=== PATIENT | female | born 1940 | race Caucasian/White ===

== ENCOUNTER 2017-03-06 03:17 | Emergency (ER) | payer SELFPAY ==
--- NOTE | 2017-03-06 03:51 | PDOC ---
Attending Attestation - Resident Resident Name: Abdi Hernandes - ED Attending Attestation I have performed the following: I have examined & evaluated the patient, The case was reviewed & discussed with the resident, I agree w/resident's findings & plan, Exceptions are as noted - HPI HPI: 03/06/17 04:55 The patient is a 77 year old female with significant past medical history of hypertension who presents to the ED for elevated blood pressure. Patient reports she went on vacation and has ran out of her medications. States is unable to visit her physician for another few weeks and now has been only taking half the dose of her blood pressure medications. She presents today for elevated blood pressure. Denies lightheadedness, diaphoresis, chest pain, SOB, jaw pain, shoulder pain, arm pain, nausea, or vomiting. The patient denies fever, chills, cough, abdominal pain, and diarrhea. - Physicial Exam PE: 03/06/17 04:56 GENERAL: Well-appearing, well-nourished. No apparent distress. HEENT: Normocephalic, atraumatic. PERRL, EOM intact. CARDIOVASCULAR: Normal S1, S2. Regular rate and rhythm. PULMONARY: Clear to auscultation bilaterally. ABDOMEN: Soft, non-distended, non-tender. EXTREMITIES: Normal ROM in all four extremities. No gross deformities. SKIN: Warm, dry. No rash NEUROLOGICAL: No focal neurological deficits. Medical Decision Making - Medical Decision Making 03/06/17 04:56 Documentation prepared by Jen Aviles, acting as manager medical writing for Alexandru Douglas MD/.
[2017-03-06 04:04] VITALS: BP 171/99; PULSE 68; TEMP 98; BMI 28.5
[2017-03-06 04:17] LABS: EOSINOPHIL 0.9 % (0-4.5); MCH 29.1 pg (25.7-33.7); MCHC 32.3 g/dl (32.0-36.0); MEAN CELL VOLUME 89.9 fl (80-96); MEAN PLT VOLUME 7.7 fl (7.5-11.1); NEUTROPHILS 72.5 % (42.8-82.8); PLATELET COUNT 239 K/MM3 (134-434); RDW 12.8 % (11.6-15.6); WHITE BLOOD COUNT 10.4 K/mm3 (4.0-10.0)
[2017-03-06] MEDS ORDERED: SODIUM CHLORIDE 500 ML IV STA (04:31)
[2017-03-06 04:42] LABS: ALBUMIN 3.9 g/dl (3.4-5.0); ALK PHOS 80 U/L (45-117); ANION GAP 8 (8-16); BILIRUBIN,TOTAL 0.3 mg/dL (0.2-1.0); CALCIUM 9.5 mg/dL (8.5-10.1); CO2 32 mmol/L (21-32); CREATININE 0.8 mg/dL (0.55-1.02); GLUCOSE,RANDOM 111 mg/dL (74-106); SGOT/AST 17 U/L (15-37); SGPT/ALT 19 U/L (12-78); TOT PROT 7.7 g/dl (6.4-8.2)
--- NOTE | 2017-03-06 05:34 | PDOC ---
*Physical Exam - Vital Signs Last Vital Signs Temp Pulse Resp BP Pulse Ox 98.0 F 68 16 171/99 99 03/06/17 04:01 03/06/17 04:01 03/06/17 04:01 03/06/17 04:01 03/06/17 04:01 - Physical Exam Comments: 03/06/17 07:41 GENERAL: Awake, alert, and fully oriented, in no acute distress HEAD: No signs of trauma, normocephalic, atraumatic EYES: PERRLA, EOMI, sclera anicteric, conjunctiva clear ENT: Auricles normal inspection, hearing grossly normal, nares patent, oropharynx clear without exudates. Moist mucosa NECK: Normal ROM, supple, no lymphadenopathy, JVD, or masses LUNGS: No distress, speaks full sentences, clear to auscultation bilaterally HEART: Regular rate and rhythm, normal S1 and S2, no murmurs, rubs or gallops, peripheral pulses normal and equal bilaterally. ABDOMEN: Soft, nontender, normoactive bowel sounds. No guarding, no rebound. No masses EXTREMITIES: Normal inspection, Normal range of motion, no edema. No clubbing or cyanosis. NEUROLOGICAL: Cranial nerves II through XII grossly intact. Normal speech, normal gait, no focal sensorimotor deficits SKIN: Warm, Dry, normal turgor, no rashes or lesions noted. ED Treatment Course - LABORATORY CBC & Chemistry Diagram: 03/06/17 04:09 03/06/17 04:09 - ADDITIONAL ORDERS Additional order review: Laboratory Results 03/06/17 04:09 Sodium 142 Potassium 3.7 Chloride 102 Carbon Dioxide 32 Anion Gap 8 BUN 11 Creatinine 0.8 Creat Clearance w eGFR > 60 Random Glucose 111 H Calcium 9.5 Total Bilirubin 0.3 AST 17 ALT 19 Alkaline Phosphatase 80 Total Protein 7.7 Albumin 3.9 03/06/17 04:09 RBC 4.65 MCV 89.9 MCHC 32.3 RDW 12.8 MPV 7.7 Neutrophils % 72.5 Lymphocytes % 18.9 Monocytes % 6.7 Eosinophils % 0.9 Basophils % 1.0 Progress Note - Progress Note Progress Note: Ms. Ewing is a 77 yo female who presents with acute general malaise. Pt. grandchildren at bedside to assist in report. Pt. complains of general sense of discomfort and non wellbeing beginning 5 hours prior to arrival. This is accompanied with ROD, Nausea w/out vomiting, and fatigue over the last 2-3 hours. She denies SOB, cough, chest pain, abdominal pain, dizziness, constipation/diarrhea, fevers/chills, slurred speech, urinary symptoms. Currently taking Nitrinol 25-100-50 for HTN management. Reports taking 1/2 of recommended dose to preserve medication before trip to [facility] tomorrow afternoon. States that she needs more antihypertensive medication before returning. GENERAL/CONSTITUTIONAL: No fever or chills. No weakness. HEAD, EYES, EARS, NOSE AND THROAT: No change in vision. No ear pain or discharge. No sore throat. CARDIOVASCULAR: No chest pain or shortness of breath RESPIRATORY: + SOB, No cough, wheezing, or hemoptysis. GASTROINTESTINAL: No nausea, vomiting, diarrhea or constipation. GENITOURINARY: No dysuria, frequency, or change in urination. MUSCULOSKELETAL: No joint or muscle swelling or pain. No neck or back pain. SKIN: No rash NEUROLOGIC: No headache, vertigo, loss of consciousness, or change in strength/ sensation. ENDOCRINE: No increased thirst. No abnormal weight change HEMATOLOGIC/LYMPHATIC: No anemia, easy bleeding, or history of blood clots. ALLERGIC/IMMUNOLOGIC: No hives or skin allergy. Medical Decision Making - Medical Decision Making 03/06/17 06:07 Ms. Ewing is a 77 yo F who presents with general malaise. No focal motor sensory deficits. There is low suspicion for CVA. There is low suspicion for HTN emergency based on physical exam and history. Pt. reports that she has to go back to the [facility] and is running out of antihypertensive medication. 03/06/17 07:36 ED Course: - EKG Unremarkable - CBC/ CMP unremarkable - UA unremarkable *DC/Admit/Observation/Transfer Diagnosis at time of Disposition: Essential (primary) hypertension, Anxiety, Non compliance w medication regimen - Discharge Dispostion Disposition: HOME Condition at time of disposition: Improved Admit: No - Prescriptions Prescriptions: Clonidine HCl [Catapres] 0.2 mg PO TID #21 tablet - Patient Instructions Printed Discharge Instructions: High Blood Pressure Additional Instructions: Follow up with PCP for adequate blood pressure control. Print Language: MALDIVIAN - Attestations Physician Attestion: 03/06/17 06:55 I, Dr. Abdi Hernandes, attest that this document has been prepared under my direction and personally reviewed by me in its entirety. I further attest, that it accurately reflects all work, treatment, procedures and medical decision -making performed by me.
[2017-03-06 05:38] LABS: URINE APPEARANCE CLEAR; URINE BILIRUBIN NEGATIVE (NEGATIVE); URINE COLOR COLORLESS; URINE GLUCOSE (UA) NEGATIVE (NEGATIVE); URINE KETONE NEGATIVE (NEGATIVE); URINE LEUK ESTERASE NEGATIVE (NEGATIVE); URINE NITRITE NEGATIVE (NEGATIVE); URINE PROTEIN NEGATIVE (NEGATIVE); URINE UROBILINOGEN NEGATIVE E.U./dl (0.2-1.0)
[2017-03-06 05:56] LABS: URINE BLOOD 2+ (NEGATIVE)
[2017-03-06 06:02] LABS: URINE RBC 1 /hpf (0-3); URINE WBC <1 /hpf (3-5)
[2017-03-06] MEDS ORDERED: cloNIDine HCL 0.1 MG TABLET ONE (07:02)
[2017-03-06] MEDS ORDERED: cloNIDine HCL 0.1 MG TABLET PO ONE (07:03)
--- NOTE | 2017-03-06 13:19 | EKG ---
Test Reason : Blood Pressure : / mmHG Vent. Rate : 069 BPM Atrial Rate : 069 BPM P-R Int : 130 ms QRS Dur : 072 ms QT Int : 396 ms P-R-T Axes : 049 005 021 degrees QTc Int : 424 ms BASELINE ARTIFACTS POOR DATA QUALITY, INTERPRETATION MAY BE ADVERSELY AFFECTED SINUS RHYTHM WITH PREMATURE ATRIAL COMPLEXES NONSPECIFIC T WAVE ABNORMALITY ABNORMAL ECG NO PREVIOUS ECGS AVAILABLE Confirmed by CONSUELO CATALAN MD ([id number]) on 03/06/2017 1:19:38 PM Referred By: HUMBERTO Confirmed By:CONSUELO CATALAN MD
== END 2017-03-06 07:07 | disposition home or self-care (01) ==
LOC: JER 03:17
PROC: 3E0337Z Introduction of Electrolytic and Water Balance Substance into Peripheral Vein, Percutaneous Approach (ICD-10-PCS; principal; 2017-03-06)
DX: I10 Essential (primary) hypertension (principal); F41.9 Anxiety disorder, unspecified; Z91.14 Patient's other noncompliance with medication regimen
CPT/HCPCS: 36415; 80053; 81003; 81015; 84484; 85025; 93005; 93010; 99283-25